=== PATIENT | female | born 1980 | race Caucasian/White ===

== ENCOUNTER 2018-01-13 15:36 | Emergency (ER) | payer OTHER ==
[~2018-01-13] VITALS: Ht 167.6 cm; Wt 59.0 kg
[~2018-01-13 15:36] MED LIST: ALBU90OI6 INH; ALPR.5 PO; BACL10 PO; BUPR150T2 PO; Bactrim Ds Tab1 EACH PO; CIPR250 PO; CIPR500 PO; CIPRO500 MG PO; CLON.1 PO; CLON1 PO; CODACE30; DOXY100; ESCI20 PO; Flomax0.4 MG PO; HYDACE5; HYDACE5 PO; HYDACE7.5 PO; HYDMOR2 PO; HYDPAM25 PO; HYDR1TAB94 PO; IBUP800; IBUP800 PO; LEVFLO500 PO; LORA.5 PO; NAPR500 PO; NAPR550 PO; NICO14TP TOP; NITR100CA; ONDA4 PO; OXYACE5T PO; OXYACE7.5T PO; PROM25 PO; PROM6.25SY PO; Percocet 5-3251 EACH PO; RXHYDACE PO; RXOXYACE PO; RXPROM25 PO; SUBOXONE 12 MG1 EACH PO; TRAM50 PO; TRAZ100 PO
[2018-01-13] MEDS ORDERED: CEPH500 PO (16:12)
[2018-01-13] MEDS ORDERED: IBUP800 PO (16:12)
[2018-01-13] MEDS ORDERED: Bactrim Ds Tab1 EACH PO (16:12)
== END 2018-01-13 17:01 | disposition home or self-care (01) ==
LOC: ER 15:36
DX: S61.031A Puncture wound without foreign body of right thumb without damage to nail, initial encounter (principal); L03.011 Cellulitis of right finger; Z88.5 Allergy status to narcotic agent; Z88.8 Allergy status to other drugs, medicaments and biological substances; Z87.891 Personal history of nicotine dependence; W22.8XXA Striking against or struck by other objects, initial encounter
CPT/HCPCS: 90471; 90714; 96372; 99283; J0690

== ENCOUNTER 2018-03-22 08:24 | Emergency (ER) | payer OTHER ==
[~2018-03-22] VITALS: Ht 162.6 cm; Wt 72.6 kg
[~2018-03-22 08:24] MED LIST changes: +CEPH500 PO
[2018-03-22 08:52] LABS: BASOPHILS ABSOLUTE AUTO 0.03 K/mm3 (0.00-0.23); BASOPHILS PERCENT AUTO 0 % (0-2); EOSINOPHILS ABSOLUTE AUTO 0.03 K/mm3 (0.00-0.68); EOSINOPHILS PERCENT AUTO 0 % (0-6); Hematocrit 40.4 % (33.0-51.0); Hemoglobin 13.8 g/dL (11.5-16.0); IMMATURE GRAN ABSOLUTE AUTO 0.04 K/mm3 (0.00-0.10); IMMATURE GRAN PERCENT AUTO 1 % (0-1); LYMPHOCYTES ABSOLUTE AUTO 1.75 K/mm3 (0.84-5.20); LYMPHOCYTES PERCENT AUTO 21 % (21-46); MONOCYTES ABSOLUTE AUTO 0.44 K/mm3 (0.16-1.47); MONOCYTES PERCENT AUTO 5 % (4-13); Mean Corpuscular HGB 27.3 pg (26.0-34.0); Mean Corpuscular HGB Conc 34.2 g/dL (31.5-36.5); Mean Corpuscular Volume 80 fL (80-100); Mean Platelet Volume 9.4 fL (9.1-12.4); NEUTROPHILS PERCENT AUTO 73 % (41-73); Platelet Count 257 K/mm3 (150-400); RDW Coefficient Variation 11.9 % (11.7-14.2); RDW Standard Deviation 34.5 fL (35.1-46.3); Red Blood Cell Count 5.05 M/mm3 (3.80-5.20); White Blood Cell Count 8.49 K/mm3 (4.00-11.30)
[2018-03-22] MEDS ORDERED: LORA.5 (08:57)
[2018-03-22] MEDS ORDERED: BUPRENORPHINE HC2 MG (08:58)
[2018-03-22] MEDS ORDERED: PROM25 PO (08:58)
[2018-03-22] MEDS ORDERED: HYDHCL25 (08:58)
[2018-03-22] MEDS ORDERED: CLON.2 (08:58)
[2018-03-22 09:07] LABS: Alanine Aminotransfer (ALT/SGP 27 U/L (12-78); Albumin, Blood 4.2 g/dL (3.4-5.0); Albumin/Globulin Ratio 0.9 (0.8-1.8); Alk Phos 107 U/L (50-136); Anion Gap 9 mmol/L (6-16); Aspartate Aminotrans (AST/SGOT 20 U/L (12-37); Bilirubin, Total 0.7 mg/dL (0.1-1.0); Blood Urea Nitrogen 9 mg/dL (8-24); Bun/Creatinine Ratio 14.4 (12.0-20.0); CO2, Blood 24 mmol/L (21-32); Calcium, Blood 9.8 mg/dL (8.5-10.1); Chloride, Blood 104 mmol/L (98-108); Creatinine, Blood 0.62 mg/dL (0.40-1.00); Globulin, Blood 4.7 g/dL (2.2-4.0); Glomerular Filtration Rate >60 (60-); Glucose, Blood 115 mg/dL (70-99); Potassium, Blood 3.8 mmol/L (3.5-5.5); Sodium, Blood 137 mmol/L (136-145); Total Protein, Blood 8.9 g/dL (6.4-8.2)
== END 2018-03-22 11:51 | disposition home or self-care (01) ==
LOC: ER 08:24
PROVIDERS: Emergency Medicine
DX: F11.23 Opioid dependence with withdrawal (principal); F17.200 Nicotine dependence, unspecified, uncomplicated; Z88.5 Allergy status to narcotic agent; Z88.8 Allergy status to other drugs, medicaments and biological substances
CPT/HCPCS: 36415; 80053; 84703; 85025; J1200; J1630; J2405; J3490; J7030

== ENCOUNTER 2018-03-22 15:39 | Emergency (ER) | payer OTHER ==
[~2018-03-22] VITALS: Ht 162.6 cm; Wt 72.6 kg
[~2018-03-22 15:39] MED LIST changes: +BUPRENORPHINE HC2 MG; +CLON.2; +HYDHCL25; +LORA.5
== END 2018-03-22 17:50 | disposition home or self-care (01) ==
LOC: ER 15:39
DX: F11.23 Opioid dependence with withdrawal (principal); F17.200 Nicotine dependence, unspecified, uncomplicated; Z88.5 Allergy status to narcotic agent; Z88.8 Allergy status to other drugs, medicaments and biological substances; Z79.899 Other long term (current) drug therapy
CPT/HCPCS: J2405

== ENCOUNTER 2018-03-25 11:25 | Emergency (ER) | payer OTHER ==
[~2018-03-25] VITALS: Ht 162.6 cm; Wt 68.0 kg
[2018-03-25] MEDS ORDERED: CLON.1 PO (11:34)
[2018-03-25] MEDS ORDERED: HYDPAM50 PO (11:35)
[2018-03-25] MEDS ORDERED: BUPRENORPHINE HC8 MG SL (11:36)
[2018-03-25] MEDS ORDERED: TRAZ50 PO (11:36)
[2018-03-25 12:05] LABS: BASOPHILS ABSOLUTE AUTO 0.03 K/mm3 (0.00-0.23); BASOPHILS PERCENT AUTO 0 % (0-2); EOSINOPHILS ABSOLUTE AUTO 0.02 K/mm3 (0.00-0.68); EOSINOPHILS PERCENT AUTO 0 % (0-6); Hemoglobin 14.9 g/dL (11.5-16.0); IMMATURE GRAN ABSOLUTE AUTO 0.07 K/mm3 (0.00-0.10); IMMATURE GRAN PERCENT AUTO 1 % (0-1); LYMPHOCYTES ABSOLUTE AUTO 1.83 K/mm3 (0.84-5.20); LYMPHOCYTES PERCENT AUTO 16 % (21-46); MONOCYTES ABSOLUTE AUTO 0.58 K/mm3 (0.16-1.47); MONOCYTES PERCENT AUTO 5 % (4-13); Mean Corpuscular HGB 27.3 pg (26.0-34.0); Mean Corpuscular HGB Conc 33.9 g/dL (31.5-36.5); Mean Corpuscular Volume 81 fL (80-100); Mean Platelet Volume 9.3 fL (9.1-12.4); NEUTROPHILS ABSOLUTE AUTO 8.62 K/mm3 (1.96-9.15); NEUTROPHILS PERCENT AUTO 77 % (41-73); Platelet Count 288 K/mm3 (150-400); RDW Coefficient Variation 12.2 % (11.7-14.2); RDW Standard Deviation 35.1 fL (35.1-46.3); Red Blood Cell Count 5.45 M/mm3 (3.80-5.20); White Blood Cell Count 11.15 K/mm3 (4.00-11.30)
[2018-03-25 12:30] LABS: Alanine Aminotransfer (ALT/SGP 31 U/L (12-78); Albumin, Blood 4.3 g/dL (3.4-5.0); Albumin/Globulin Ratio 0.9 (0.8-1.8); Alk Phos 104 U/L (50-136); Anion Gap 11 mmol/L (6-16); Aspartate Aminotrans (AST/SGOT 21 U/L (12-37); Bilirubin, Total 0.8 mg/dL (0.1-1.0); Blood Urea Nitrogen 18 mg/dL (8-24); Bun/Creatinine Ratio 22.8 (12.0-20.0); CO2, Blood 23 mmol/L (21-32); Calcium, Blood 9.8 mg/dL (8.5-10.1); Chloride, Blood 102 mmol/L (98-108); Creatinine, Blood 0.79 mg/dL (0.40-1.00); Globulin, Blood 4.8 g/dL (2.2-4.0); Glomerular Filtration Rate >60 (60-); Glucose, Blood 102 mg/dL (70-99); Potassium, Blood 3.8 mmol/L (3.5-5.5); Sodium, Blood 136 mmol/L (136-145); Total Protein, Blood 9.1 g/dL (6.4-8.2)
[2018-03-25] MEDS ORDERED: Colace250 MG PO (14:25)
== END 2018-03-25 14:37 | disposition home or self-care (01) ==
LOC: ER 11:25
PROVIDERS: Emergency Medicine
DX: K59.00 Constipation, unspecified (principal); R11.2 Nausea with vomiting, unspecified; Z88.5 Allergy status to narcotic agent; Z88.8 Allergy status to other drugs, medicaments and biological substances; Z79.899 Other long term (current) drug therapy; F17.210 Nicotine dependence, cigarettes, uncomplicated
CPT/HCPCS: 36415; 74022; 74177; 80053; 81000; 83690; 85025; 96361; 96374; 96375; 99284-25; C9113; J2405; J3490; J7120; Q9967